=== PATIENT | male | born 1990 | race Caucasian/White ===

== ENCOUNTER 2019-02-20 23:33 | Emergency (ER) | payer OTHER ==
[~2019-02-20] VITALS: Ht 167.6 cm; Wt 77.3 kg
[2019-02-21 01:53] VITALS: BP 120/78
[2019-02-21 01:54] LABS: AMPHET/METH SCREEN,URINE NEGATIVE (NEGATIVE); BARBITURATE SCREEN, URINE NEGATIVE (NEGATIVE); BENZODIAZEPINES SCREEN,URINE NEGATIVE (NEGATIVE); CANNABINOID SCREEN,URINE POSITIVE (NEGATIVE); COCAINE SCREEN,URINE NEGATIVE (NEGATIVE); METHADONE SCREEN, URINE NEGATIVE (NEGATIVE); OPIATE SCREEN,URINE NEGATIVE (NEGATIVE)
[2019-02-21 01:55] LABS: PHENCYCLIDINE SCREEN,URINE NEGATIVE (NEGATIVE)
== END 2019-02-21 05:00 | disposition left against medical advice (07) ==
LOC: EMS 23:33
DX: F32.9 Major depressive disorder, single episode, unspecified (principal); Z53.21 Procedure and treatment not carried out due to patient leaving prior to being seen by health care provider

== ENCOUNTER 2020-10-04 19:08 | Emergency (ER) | payer MEDICAID, OTHER ==
[~2020-10-04 19:08] MED LIST: OLAN5TAB2 PO
== END 2020-10-04 19:57 | disposition left against medical advice (07) ==
LOC: EMS 19:08
DX: Z04.6 Encounter for general psychiatric examination, requested by authority (principal); Z53.21 Procedure and treatment not carried out due to patient leaving prior to being seen by health care provider

== ENCOUNTER 2020-10-15 18:31 | Inpatient (IN) | payer MEDICAID ==
[2020-10-15 20:18] VITALS: BP 122/77
[2020-10-15] MEDS ORDERED: PROMETHAZINE HCL 25 MG TABLET PO PRN (21:45)
[2020-10-15] MEDS ORDERED: GuaiFENesin/D-METHORPHAN [SUGAR-FREE] 200-20MG/10 ML SYRUP UDCUP PO PRN (21:45)
[2020-10-15] MEDS ORDERED: LOPERAMIDE HCL 2 MG CAPSULE PO PRN (21:45)
[2020-10-15] MEDS ORDERED: ZOLPIDEM TARTRATE 10 MG TABLET PO PRN (21:45)
[2020-10-15] MEDS ORDERED: OLANZapine 5 MG RAPDIS TABLET PO PRN (21:45)
[2020-10-15] MEDS ORDERED: HydrOXYzine PAMOATE 50 MG CAPSULE PO PRN (21:45)
[2020-10-15] MEDS ORDERED: DIAZEPAM 10 MG TABLET PO PRN (21:45)
[2020-10-16] VITALS (11 sets, daily range): BP systolic 102–119; BP diastolic 62–77
[2020-10-16] MEDS ORDERED: INFLUENZA VIRUS VACCINE QVS 2020-21 (6MO+)/PF 60 MCG/0.5 ML SYRINGE IM ONE (01:30)
[2020-10-16] MEDS ORDERED: PNEUMOCOCCAL VACCINE POLYVALENT 0.5 ML VIAL [PPSV23] IM ONE (01:30)
[2020-10-16] MEDS ORDERED: DIAZEPAM 10 MG TABLET PO PRN (07:00)
[2020-10-16 07:11] LABS: BASOPHILS % (AUTO) 0.8 % (0.0-2.0); EOSINOPHILS % (AUTO) 5.9 % (1.0-6.0); HEMATOCRIT 51.1 % (41-53); HEMOGLOBIN 16.6 g/dL (13.5-17.5); MEAN CORPUSCULAR HEMOGLOBIN 30.5 pg (26.0-34.0); MEAN CORPUSCULAR HGB CONC 32.6 G/dL (31.0-37.0); MEAN CORPUSCULAR VOLUME 94 fL (80-100); MONOCYTES # (AUTO) 0.5 K/uL (0.1-1.0); MONOCYTES % (AUTO) 8.8 % (2.0-9.0); NEUTROPHILS # (AUTO) 3.3 K/uL (1.8-7.7); NEUTROPHILS % (AUTO) 52.5 % (40.0-70.0); PLATELET COUNT (AUTO) 264 K/uL (150-450); RED BLOOD CELL COUNT(AUTO) 5.46 MIL/uL (4.50-5.90); RED CELL DISTRIBUTION WIDTH 14.7 % (11.5-14.5)
[2020-10-16 08:07] LABS: ALANINE AMINOTRANSFERASE 33 U/L (12-78); ALBUMIN 3.7 g/dL (3.4-5.0); ALKALINE PHOSPHATASE 52 U/L (46-116); ANION GAP 9 mmol/L (8-16); ASPARTATE AMINOTRANSFERASE 15 U/L (15-37); BILIRUBIN,TOTAL 0.5 mg/dL (0.1-1.0); CARBON DIOXIDE 25 mmol/L (22-29); CHLORIDE 106 mmol/L (98-107); CHOL/HDL RATIO 2.7 (4.2-7.3); CHOLESTEROL 172 mg/dL (131-200); FREE T4 (FREE THYROXINE) 1.01 ng/dL (0.76-1.46); GLOMERULAR FILTR. RATE CALC > 60 mL/min (>60); GLUCOSE,RANDOM 86 mg/dL (70-110); HDL CHOLESTEROL 64 mg/dL (40-60); LDL CHOL (CALC.) 86 mg/dL (0-130); POTASSIUM 4.2 mmol/L (3.5-5.1); SODIUM SERUM 140 mmol/L (136-145); THYROID STIMULATING HORMONE 0.74 uIU/mL (0.36-3.74); TOTAL PROTEIN, SERUM 7.5 g/dL (6.4-8.2); TRIGLYCERIDES 108 mg/dL (15-150); UREA NITROGEN, BLOOD 12 mg/dL (7-18)
[2020-10-16] MEDS: OMEGA-3/DHA/EPA/FISH OIL 1,000 MG CAPSULE PO SCH (08:59)
[2020-10-16] MEDS: FLUoxetine HCL 10 MG CAPSULE PO SCH (08:59)
[2020-10-16] MEDS: MULTIVITAMINS WITH MINERALS, THERAPEUTIC TABLET PO SCH (08:59)
[2020-10-16] MEDS: NALTREXONE HCL 50 MG TABLET PO SCH (08:59)
[2020-10-16] MEDS ORDERED: CYANOCOBALAMIN 1,000 MCG/ML VIAL IM ONE (09:00)
[2020-10-16] MEDS: FOLIC ACID 1 MG TABLET PO SCH (09:00)
[2020-10-16] MEDS: THIAMINE 100 MG TABLET PO SCH ×2 (09:00→16:45)
[2020-10-16] MEDS: DIAZEPAM 10 MG TABLET PO SCH ×4 (09:00→20:29)
[2020-10-16 10:05] LABS: HEMOGLOBIN A1C 5.1 % (3.8-5.6)
[2020-10-16] MEDS ORDERED: BISACODYL 5 MG EC TABLET PO PRN (10:45)
[2020-10-16] MEDS ORDERED: MELA5TAB3 PO (16:22)
[2020-10-16] MEDS ORDERED: NALT50TA PO (16:22)
[2020-10-16] MEDS ORDERED: PROZ10 PO (16:22)
[2020-10-16] MEDS ORDERED: OLAN10TA22 PO (16:22)
[2020-10-16] MEDS ORDERED: OLANZapine 10 MG RAPDIS TABLET PO SCH (21:00)
[2020-10-16] MEDS ORDERED: MELATONIN 5 MG TABLET PO SCH (21:00)
[2020-10-17 01:26] VITALS: BP 117/68
[2020-10-17 05:27] VITALS: BP 105/62
[2020-10-17 08:13] VITALS: BP 117/74
[2020-10-17] MEDS: MULTIVITAMINS WITH MINERALS, THERAPEUTIC TABLET PO SCH (09:51)
[2020-10-17] MEDS: FOLIC ACID 1 MG TABLET PO SCH (09:52)
[2020-10-17] MEDS: OMEGA-3/DHA/EPA/FISH OIL 1,000 MG CAPSULE PO SCH (09:52)
[2020-10-17] MEDS: NALTREXONE HCL 50 MG TABLET PO SCH (09:52)
[2020-10-17] MEDS: THIAMINE 100 MG TABLET PO SCH (09:52)
[2020-10-17] MEDS: DIAZEPAM 10 MG TABLET PO SCH ×2 (09:52→13:10)
[2020-10-17] MEDS: FLUoxetine HCL 10 MG CAPSULE PO SCH (10:27)
[2020-10-17] MEDS ORDERED: PROZ10 PO (14:20)
[2020-10-17] MEDS ORDERED: MELA5TAB3 PO (14:20)
[2020-10-17] MEDS ORDERED: OLAN10TA3 PO (14:21)
[2020-10-17] MEDS ORDERED: NALT50TA6 PO (14:21)
[2020-10-18] MEDS ORDERED: DIAZEPAM 5 MG TABLET PO PRN (07:00)
[2020-10-18] MEDS ORDERED: DIAZEPAM 5 MG TABLET PO SCH (09:00)
[2020-10-19] MEDS ORDERED: DIAZEPAM 5 MG TABLET PO PRN (07:00)
== END 2020-10-17 15:02 | disposition home or self-care (01) | DRG 751 ==
LOC: B2S 23:31
PROVIDERS: ADMIT Psychiatry & Neurology Psychiatry; ATTEND Psychiatry & Neurology Psychiatry
DX: F33.2 Major depressive disorder, recurrent severe without psychotic features (principal); F12.90 Cannabis use, unspecified, uncomplicated; K59.00 Constipation, unspecified; R45.851 Suicidal ideations; F10.20 Alcohol dependence, uncomplicated; F41.9 Anxiety disorder, unspecified; Z59.0 Homelessness
CPT/HCPCS: 83036; 84439; 84443; 86592; J3420

== ENCOUNTER 2020-10-15 21:28 | Emergency (ER) | payer MEDICAID, OTHER ==
[~2020-10-15] VITALS: Ht 167.6 cm; Wt 75.0 kg
[2020-10-15 22:00] LABS: COVID AG,FIA SOURCE NASAL SWAB
[2020-10-16] VITALS: BP 139/74
[2020-10-16] MEDS ORDERED: NALT50TA PO (16:22)
[2020-10-16] MEDS ORDERED: OLAN10TA22 PO (16:22)
[2020-10-16] MEDS ORDERED: PROZ10 PO (16:22)
[2020-10-16] MEDS ORDERED: MELA5TAB3 PO (16:22)
[2020-10-17] MEDS ORDERED: MELA5TAB3 PO (14:20)
[2020-10-17] MEDS ORDERED: PROZ10 PO (14:20)
[2020-10-17] MEDS ORDERED: OLAN10TA3 PO (14:21)
[2020-10-17] MEDS ORDERED: NALT50TA6 PO (14:21)
== END 2020-10-16 00:59 | disposition home or self-care (01) ==
LOC: EMS 21:28
DX: F10.20 Alcohol dependence, uncomplicated (principal); F17.210 Nicotine dependence, cigarettes, uncomplicated; F12.90 Cannabis use, unspecified, uncomplicated; Z20.828 Contact with and (suspected) exposure to other viral communicable diseases
CPT/HCPCS: 87426